=== PATIENT | female | born 1995 | race Caucasian/White ===

== ENCOUNTER → 2018-11-22 | Emergency (ER) | payer OTHER ==
[~2018-11-22] VITALS: Ht 167.6 cm; Wt 117.9 kg
[~2018-11-22] MED LIST: KETO10TA2 PO; PROTONIX40 MG PO; TAMS0.4C PO; ULTRACET PO; ZANTAC150 MG PO
== END | disposition home or self-care (01) ==
LOC: ER 21:20
DX: N20.0 Calculus of kidney (principal)

== ENCOUNTER → 2018-12-01 | Emergency (ER) | payer OTHER ==
[~2018-12-01] VITALS: Ht 167.6 cm; Wt 113.4 kg
== END | disposition home or self-care (01) ==
LOC: ER 00:30
DX: R10.32 Left lower quadrant pain (principal)

== ENCOUNTER 2019-06-08 23:05 | Emergency (ER) | payer OTHER ==
[~2019-06-08] VITALS: Ht 167.6 cm; Wt 113.4 kg
[2019-06-08] MEDS ORDERED: LOESTRIN FE 1-1 EACH (23:18)
== END 2019-06-09 17:10 | disposition home or self-care (01) ==
LOC: ER 23:05
DX: K52.89 Other specified noninfective gastroenteritis and colitis (principal)

== ENCOUNTER 2021-01-19 20:34 | Emergency (ER) | payer OTHER ==
[~2021-01-19] VITALS: Ht 167.6 cm; Wt 122.5 kg
[~2021-01-19 20:34] MED LIST changes: +LOESTRIN FE 1-1 EACH
[2021-01-19] MEDS ORDERED: TAPAZOLE5 M1 (20:52)
[2021-01-20] MEDS ORDERED: CIPRO500 MG PO (03:06)
[2021-01-20] MEDS ORDERED: KETO10TA2 PO (03:06)
== END 2021-01-20 03:17 ==
LOC: ER 20:34
DX: N23 Unspecified renal colic (principal)

== ENCOUNTER 2021-02-15 07:10 | Emergency (ER) | payer OTHER ==
[~2021-02-15] VITALS: Ht 167.6 cm; Wt 117.9 kg
[~2021-02-15 07:10] MED LIST changes: +CIPRO500 MG PO; +TAPAZOLE5 M1
[2021-02-15] MEDS ORDERED: PERCOCET 10-321 EACH PO (17:52)
[2021-02-15] MEDS ORDERED: TAMS0.4C PO (17:52)
== END 2021-02-15 18:00 | disposition home or self-care (01) ==
LOC: ER 07:10
DX: N20.0 Calculus of kidney (principal); N23 Unspecified renal colic

== ENCOUNTER 2021-09-14 12:05 | Emergency (ER) | payer OTHER ==
[~2021-09-14] VITALS: Ht 167.6 cm; Wt 122.5 kg
[~2021-09-14 12:05] MED LIST changes: +PERCOCET 10-321 EACH PO
== END 2021-09-14 15:51 | disposition home or self-care (01) ==
LOC: ER 12:05
DX: J03.90 Acute tonsillitis, unspecified (principal); Z20.822 Contact with and (suspected) exposure to COVID-19

== ENCOUNTER 2022-08-02 06:00 | Emergency (ER) | payer OTHER ==
[~2022-08-02] VITALS: Ht 167.6 cm; Wt 117.9 kg
[2022-08-02] MEDS ORDERED: ZYRTEC10 M3 PO (06:08)
[2022-08-02] MEDS ORDERED: PEPCID AC20 MG PO (09:33)
== END 2022-08-02 09:45 | disposition home or self-care (01) ==
LOC: ER 06:00
DX: K52.9 Noninfective gastroenteritis and colitis, unspecified (principal); R11.2 Nausea with vomiting, unspecified; Z20.822 Contact with and (suspected) exposure to COVID-19